=== PATIENT | female | born 1965 | race Caucasian/White ===

== ENCOUNTER 2017-02-22 21:05 | Emergency (ER) | payer BC, OTHER ==
[2017-02-22] MEDS ORDERED: ORPHENADRINE CITRATE 30 MG/ML VIAL IM ONE (21:43)
--- NOTE | 2017-02-22 21:43 | ERNOTE ---
Back Pain ER HPI Presenting Symptoms: injury/pain to back Time Seen by Provider: 02/22/17 21:36 Source: patient Exam Limitations: no limitations Immunizations: IMMUNIZATION HX Immunizations Up to Date Yes History of Influenza Vaccine No Hx Pneumococcal Vaccination No Allergies/Adverse Reactions: Allergies No Known Allergies Allergy (Verified 09/13/15 08:55) Home Medications: HOME MEDICATIONS FLUoxetine HCL [Prozac] 40 mg PO DAILY 10/21/12 [Last Taken Unknown] Omeprazole [Prilosec Generic] 20 mg PO DAILY 10/21/12 [Last Taken Unknown] Cyclobenzaprine HCl [Flexeril] 10 mg PO TID PRN #20 tab 02/22/17 [Last Taken Unknown] Narrative: Pt began to have low back pain a couple of days ago. She saw a chiropractor today and her back feels better but now her left leg hurts. Timing: Reports: constant, getting worse Quality/Severity: Reports: moderate, severe, aching, cramping Location of pain: Reports: lower back, radiating to lf thigh/leg Activities at Onset: Reports: activity - lifting Recent Injury?: Reports: possibly Possible Precipitating Factor: Reports: lifting Modifying Factors - (Improves): Reports: nothing Modifying Factors - (Worsens): Reports: supine position, movement flexion Review of Systems - Review of Systems Constitutional: Absent: fever, chills EYE: Present: no symptoms reported ENT: Present: no symptoms reported Respiratory: Present: no symptoms reported Cardiology: Present: no symptoms reported Gastrointestinal/Abdominal: Present: no symptoms reported Genitourinary: Present: no symptoms reported Musculoskeletal: Present: See HPI. Absent: joint pain, joint swelling Skin: Absent: rash Neurological: Absent: numbness, tingling Endocrine: Present: no symptoms reported Hematologic/Lymphatic: Present: no symptoms reported Psych: Present: no symptoms reported - Patient's Past Medical History Patient History - Medical: No pertinent hx Patient History - Cardiac/Respiratory: No pertinent hx Patient History - Cancer: No Hx of Cancer Patient History - Surgical Procedures: Appendectomy Patient History - Other: None LMP (females 10-50): Menopausal - Social History Living Situations: alone Abuse History: No History of abuse Psych History: No pertinent hx Smoking Status: Current every day smoker Have you smoked in the past 12 months: Yes Do you dip or chew tobacco: No Alcohol Use: none Drug Use: none - Immunizations Immunizations Up to Date: Yes Hx Pneumococcal Vaccination: No History of Influenza Vaccine: No Physical Exam - Physical Exam General Appearance: Present: wd/wn, alert, mild distress Head Exam: Present: normal inspection, no evidence of injury Eye Exam: Normal inspection: bilateral Neck: Present: normal inspection, supple Respiratory: Present: no respiratory distress, no accessory muscle use Extremity Exam: Present: decreased range of motion - pain with any motion of the left leg. , other - No specific SI or hip Skin Exam: Present: normal color, warm/dry Lymphatic Exam: Present: no adenopathy ED Progress - Vital Signs Patient's Vital Signs:: I have reviewed the patient's vital signs. Vital Signs: Vital Signs 02/22/17 21:21 Temperature 35.9 C L Pulse Rate 71 Respiratory 16 Rate Blood Pressure 162/75 O2 Sat by Pulse 97 Oximetry - Progress/Reassessment Chief Complaint: Back Pain Departure Clinical Impression: Sciatic leg pain, Muscle spasm - Departure Disposition: Home self-care Condition: Good Instructions: Muscle Cramps and Spasms, [id number], Sciatica, [id number] Additional Instructions: You may continue to use ibuprofen 800 mg 3 times a day OR you may try aleve 440 mg (two tabs) twice a day. Take the muscle relaxers three times a day if you can but at least at bedtime every day. See your regular doctor if not improving. Referrals: Shari Chavez FNP [Primary Care Provider] - Prescriptions: Cyclobenzaprine HCl [Flexeril] 10 mg PO TID PRN #20 tab PRN Reason: MUSCLE SPASMS
[2017-02-22] MEDS ORDERED: ORPHENADRINE CITRATE 30 MG/ML VIAL ONE (21:45)
[2017-02-22 22:14] VITALS: BP 150/76
== END 2017-02-22 22:12 | disposition home or self-care (01) ==
LOC: ER 21:05
DX: M54.32 Sciatica, left side (principal); M62.838 Other muscle spasm; F17.200 Nicotine dependence, unspecified, uncomplicated